=== PATIENT | male | born 1965 | race Caucasian/White ===

== ENCOUNTER 2017-07-09 13:13 | Emergency (ER) | payer OTHER ==
[~2017-07-09] VITALS: Ht 182.9 cm; Wt 102.3 kg
[2017-07-09 14:10] LABS: HEMATOCRIT 45.3 % (38.0-50.0); HEMOGLOBIN 15.5 G/DL (12.5-16.6); MCH 28.9 PG (29.0-34.0); MCHC 34.2 G/DL (30.0-36.0); MCV 84.4 FL (86-99); PLATELET COUNT 227 K/uL (156-360); RBC DIS.WIDTH-CV 12.3 % (11.8-14.6); RBC DIS.WIDTH-SD 37.3 % (39-53); RED BLOOD COUNT 5.37 M/uL (4.00-5.50); WHITE BLOOD COUNT 7.2 K/uL (4.1-10.2)
[2017-07-09 14:20] LABS: CHLORIDE 106 mEq/L (99-109); POTASSIUM 4.1 mEq/L (3.7-5.4); SODIUM 140 mEq/L (136-147)
[2017-07-09 14:21] LABS: GLUCOSE 90 mg/dL (70-99)
[2017-07-09 14:25] LABS: CREATININE 1.1 mg/dL (0.6-1.3); GFR ESTIMATE (CALCULATED) > 59 mL/min/ (58.99-99999)
[2017-07-09 14:26] LABS: UREA NITROGEN (BUN) 17 mg/dL (9-23)
[2017-07-09 14:31] LABS: TROP-I INTERPRETATION NEGATIVE; TROPONIN-I < 0.01 ng/mL (0.0-0.30)
[2017-07-09 17:48] LABS: TROP-I INTERPRETATION NEGATIVE; TROPONIN-I < 0.01 ng/mL (0.0-0.30)
[2017-07-09 18:22] VITALS: BP 130/71
== END 2017-07-09 18:24 | disposition home or self-care (01) ==
LOC: EME 13:13
PROVIDERS: Physician Assistant
DX: R07.9 Chest pain, unspecified (principal); I25.2 Old myocardial infarction
CPT/HCPCS: 71046; 80048; 84484; 85027; 93005; 99281; 99284